=== PATIENT | female | born 1990 | race Caucasian/White ===

== ENCOUNTER 2017-10-22 09:55 | Emergency (ER) | payer OTHER ==
[~2017-10-22] VITALS: Ht 160 cm; Wt 49.9 kg
[2017-10-22 10:01] VITALS: BP 114/71
--- NOTE | 2017-10-22 10:19 | ED ANIMAL BITE/WOUND CHECK ---
History of Present Illness General Chief Complaint: Suture Removal/Wound Recheck Stated Complaint: SUTURE REMOVAL (LOWER LIP) Source: patient Exam Limitations: no limitations Vital Signs & Intake/Output Vital Signs & Intake/Output ED Intake and Output 10/23 0000 10/22 1200 Intake Total Output Total Balance Patient 110 lb Weight Weight Reported by Patient Measurement Method Allergies Coded Allergies: No Known Allergies (10/17/17) Triage Note: TRIAGE: 27 Y/O FEMALE PRESENTS FOR SUTURE REMOVAL FROM LOWER LIP. AREA APPEARS WELL APPROXIMATED. Triage Nurses Notes Reviewed? yes Duration: day(s): Timing: recent history Injury Environment: home Is Injury an Animal Bite? No : No Patient currently breastfeeds: No HPI: 27-year-old female comes into the emergency room for further evaluation of suture removal to face. Patient had hit her face on the steering well the other day. Multiple sutures placed in lower lip/face (Justin Estrella) Past History Travel History Traveled to [place] past 21 day No Medical History Any Pertinent Medical History? see below for history Neurological: NONE EENT: NONE Cardiovascular: NONE Respiratory: NONE Gastrointestinal: NONE Hepatic: NONE Renal: NONE Musculoskeletal: NONE Psychiatric: NONE Endocrine: NONE Blood Disorders: NONE Cancer(s): NONE VISCOSITY WORKER/Reproductive: NONE Tetanus Vaccine: 10/17/17 Surgical History Surgical History: non-contributory Psychosocial History What is your primary language Occitan Tobacco Use: Never used ETOH Use: denies use Illicit Drug Use: denies illicit drug use Family History Hx Contributory? No (Justin Estrella) Review of Systems Review of Systems Constitutional: Reports: no symptoms. EENTM: Reports: see HPI. Respiratory: Reports: no symptoms. Cardiovascular: Reports: no symptoms. GI: Reports: no symptoms. Genitourinary: Reports: no symptoms. Musculoskeletal: Reports: no symptoms. Skin: Reports: no symptoms. Neurological/Psychological: Reports: no symptoms. Hematologic/Endocrine: Reports: no symptoms. Immunologic/Allergic: Reports: no symptoms. All Other Systems: Reviewed and Negative (Justin Estrella) Physical Exam Physical Exam General Appearance: well developed/nourished Head: sutures to face Eyes: Bilateral: normal appearance. Ears, Nose, Throat: normal ENT inspection, hearing grossly normal Neck: normal inspection, supple Respiratory: no respiratory distress Back: normal range of motion Extremities: normal range of motion Neurologic/Psych: awake, alert, oriented x 3, normal mood/affect Skin: intact, normal color, warm/dry (Justin Estrella) Progress Differential Diagnosis: abscess, cellulitis, joint infection, tenosysnovitis Plan of Care: 10/22/2017 10:22:55 AM Facial sutures removed. Absorbable stitches in the lip were kept in place. (Justin Estrella) Departure Departure Disposition: HOME OR SELF CARE Condition: Stable Clinical Impression Primary Impression: Encounter for removal of sutures Referrals: Patient Has No Primary Care Dr (PCP/Family) Additional Instructions: Return if any other concerns worsening symptoms. Bacitracin over where sutures were removed. Please go over all results of today's visit with your primary care doctor. Contact your primary care doctor to let them know you were here in the emergency room. There may be nonspecific findings which may not be related to your visit today here in the emergency room but may require further evaluation and chronic monitoring by your primary care doctor. If you had a laceration today the chance of foreign body always remains. You should follow-up with your primary care doctor for recheck in 3-5 days for a wound check. If you had an x-ray done there is a chance that a fracture could have been missed on initial read and you should follow-up with your primary care doctor for repeat x-rays if symptoms persist. If your blood pressure was elevated here in the emergency room please have rechecked by [facility] primary care doctor within the next 48. If you were prescribed a narcotic here in the emergency room or any type of controlled substances you're not allowed to drive while taking this medication or operate any type of heavy machinery. Narcotics can make you feel lightheaded dizziness nausea and can cause constipation. You may need to waste picker a stool softener. Thank you for choosing [facility] emergency room. Please return to the emergency room immediately if you have any other concerns worsening of symptoms. Departure Forms: Customer Survey General Discharge Information (Justin Estrella) PA/BODY WORKER Co-Sign Statement Statement: ED Attending supervision documentation- [] I saw and evaluated the patient. I have also reviewed all the pertinent lab results and diagnostic results. I agree with the findings and the plan of care as documented in the PA's/BODY WORKER's documentation. [X] I have reviewed the ED Record and agree with the PA's/BODY WORKER's documentation. [] Additions or exceptions (if any) to the PAs/BODY WORKER's note and plan are summarized below: [] (Dalia RONQUILLO,[facility])
[2017-10-28] MEDS ORDERED: OMEPRAZOLE40 M1 PO (15:55)
== END 2017-10-22 10:26 ==
LOC: ERH 09:55
DX: Z48.02 Encounter for removal of sutures (principal)